=== PATIENT | male | born 1990 | race Caucasian/White ===

== ENCOUNTER → 2016-11-23 | Outpatient (CLI) | payer OTHER ==
[2016-11-23 13:36] LABS: BASO % 0.3 %; BASO ABS # 0.01 K/uL (0-0.2); COMPLETE YES; EOS % 1.1 %; HEMATOCRIT 38.9 % (42-52); IG% 0.3 %; LYMPH % 41.8 %; LYMPH ABS # 1.57 K/uL (1.2-3.4); MEAN CELL VOLUME 82.4 fL (80-100); MEAN CORPUSCULAR HEMOGLOBIN 28.2 pg (25-34); MEAN CORPUSCULAR HGB CONC 34.2 g/dl (32-36); MEAN PLATELET VOLUME 9.4 fL (7.4-10.4); MONO % 10.6 %; NEUT % 45.9 %; PLATELET COUNT 214 K/uL (130-400); RED BLOOD COUNT 4.72 M/uL (4.7-6.1); WHITE BLOOD COUNT 3.76 K/uL (4.8-10.8)
[2016-11-23 14:00] LABS: ALT/SGPT 21 U/L (12-78); BLOOD UREA NITROGEN 8 mg/dl (7-18); BUN/CREATININE RATIO 9.1 (10-20); CALCIUM 8.9 mg/dl (8.5-10.1); CARBON DIOXIDE 28 mmol/L (21-32); CHLORIDE 105 mmol/L (98-107); CREATININE 0.87 mg/dl (0.60-1.40); GLUCOSE 74 mg/dl (70-99); POTASSIUM 4.1 mmol/L (3.5-5.1); SODIUM 140 mmol/L (136-145)
[2016-11-23 14:11] LABS: ALKALINE PHOSPHATASE 42 U/L (45-117); AST/SGOT 10 U/L (15-37); CHOLESTEROL 161 mg/dl (0-200); HDL CHOLESTEROL 54 mg/dl; LDL CHOLESTEROL CALCULATED 81 mg/dl; TRIGLYCERIDES 129 mg/dl (0-150); VERY LOW DENSITY LIPOPROT CALC 26 mg/dl
== END | disposition home or self-care (01) ==
LOC: C.LAB 12:56
PROVIDERS: ATTEND Psychiatry & Neurology Geriatric Psychiatry
DX: Z79.899 Other long term (current) drug therapy (principal)

== ENCOUNTER 2020-12-09 13:38 | Inpatient (IN) ==
[2020-12-09] MEDS ORDERED: ACETAMINOPHEN 325 MG TAB PO STA (14:54)
[2020-12-09] MEDS ORDERED: DICLOFENAC SOD 1% GEL 100 GM TUBE EXT STA (14:54)
[2020-12-09] MEDS: SODIUM CHLORIDE 0.9% 1000ML 1,000 ML IV SCH ×2 (15:03→23:12)
--- NOTE | 2020-12-09 15:13 | Emergency Department Note ---
History of Present Illness General Chief complaint: Back Injury/Pain Stated complaint: chest pain, severe back pain, sob Time Seen by Provider: 12/09/20 14:34 Source: patient and family Mode of arrival: ambulatory Limitations: physical limitation (Intellectual delay) History of Present Illness Provider complaint: back pain Onset (ago): day(s) Location: back Radiation: distal Severity: mild Pain Consistency: + constant Relieved By: + none Exacerbated By: + movement Associated symptoms: + denies other symptoms Treatments prior to arrival: NSAID This is a 30-year-old male who presents with family at bedside due to concern for back pain. Patient initially states back pain began yesterday however later than states it began several days ago. He states it does sometimes radiate including and was leg. He denies abdominal pain, fevers, chills, change in urine or bowel movements. He denies difficulty walking. States occasionally he does feel tingling in his leg. No prior history of back injury or back problems. 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 Family at bedside state patient has a history of intellectual delay and bipolar disorder. He was recently restarted on Thorazine and the mother noticed that his back pain began shortly after this. Family is also concerned that patient is not having the same response to Thorazine as he had as had prev iously. With permission of the patient and family member, I spoke with mom on speaker phone. Mother states that about every 4 years he has an episode of se. She states he has used Thorazine in the past with good success. She states Thorazine was restarted 2 weeks ago at 100 mg twice daily. She states shortly after that he began complaining of back pain. Mother states he has not been having the same appropriate response. She has tried to recontact his prescriber, Dr. Pride, however suspects that her messages are not being passed along by the nursing staff. She states she was told by nursing staff to take him to the [facility] for inpatient however he is not suicidal, homicidal or self-injurious. She did take him anyway for evaluation and was told he does not meet criteria for inpatient. She then tried to recontact Dr. Veliz again and the same nurse told her to bring him to the emergency room for a psych evaluation. Mother is concerned his medications just need to be adjusted but has not been able to contact the prescriber. Mother states he did have his Depakote level checked recently and this was within normal limits. She states in discussion with her other son, there was concern that patient was short of breath and also complained of chest pain earlier today. She felt patient should be brought in for additional cardiac evaluation in case of an adverse reaction to the Thorazine. Pt seen during a time of high acuity and national emergency pandemic while wearing PPE. Home Medications Medication Instructions Recorded Confirmed Type chlorpromazine 100 mg tablet 100 mg PO BID 12/09/20 12/09/20 History divalproex 500 mg tablet,extended 500 mg PO TID 12/09/20 12/09/20 History release 24 hr hydroxyzine HCl 25 mg tablet 25 mg PO HS 12/09/20 12/09/20 History quetiapine 300 mg tablet,extended 300 mg PO QAM 12/09/20 12/09/20 History release 24 hr quetiapine 400 mg tablet,extended 400 mg PO HS 12/09/20 12/09/20 History release 24 hr quetiapine 50 mg tablet,extended 50 mg PO HS 12/09/20 12/09/20 History release 24 hr trazodone 100 mg tablet 200 mg PO HS 12/09/20 12/09/20 History Allergies Allergy/AdvReac Type Severity Reaction Status Date / Time Sulfa (Sulfonamide AdvReac Severe HIVES Verified 12/09/20 15:12 Antibiotics) Past Med/Surg History Medical History Bipolar disorder Social History Smoking Status: Current some day smoker Second Hand Exposure: No; Do You Dip or Chew Tobacco: No; Hx Alcohol Use: Yes Alcohol type: beer Hx Substance Use: Yes Last Used Substance: Unknown Preferred Language: Spanish Communication Ability: Effective Philatelic Consultant Required: No Beliefs That Will Affect Care: None Current Living Situation: Family Feels Safe at Home: Yes Safety Concerns: Feels Safe At This Time Review of Systems A total of 10 systems reviewed and were otherwise negative All systems reviewed & are unremarkable except as noted in HPI & below Physical Exam Vital Signs Vital Signs - 24 hr 12/09/20 13:53 12/09/20 16:15 12/09/20 18:59 Temperature 37 C Temperature Source Temporal Artery Scan Pulse Rate 103 H Respiratory Rate 18 20 20 Respiratory Effort / Characteristics Non-Labored Respiratory Depth Normal Normal Blood Pressure 152/89 H Blood Pressure [Right Arm] 161/90 H 154/70 H Blood Pressure Mean 110 Blood Pressure Mean [Right Arm] 113 98 Blood Pressure Position [Right Arm] Lying Pulse Oximetry 100 99 99 Oxygen Delivery Method Room Air Room Air Room Air Sepsis Recent Fever Within 48 Hours No Sepsis New/Unexplained Change in Mental Status No Sepsis Action Taken by Nursing No Action Required GENERAL: alert, well appearing, well nourished, no distress, non-toxic EYE EXAM: normal conjunctiva, PERRL and EOM's grossly intact OROPHARYNX: no exudate, no erythema, lips, buccal mucosa, and tongue normal and mucous membranes are moist NECK: supple, no nuchal rigidity, no adenopathy, non-tender LUNGS: Clear to auscultation. Normal chest wall mechanics, no w/r/r HEART: no murmurs, S1 normal and S2 normal ABDOMEN: abdomen soft, non-tender, normo-active bowel sounds, no masses, no rebound or guarding. BACK: Back is symmetrical on inspection and there is no deformity, no midline tenderness, no CVA tenderness. SKIN: no rashes and no bruising UPPER EXTREMITIES: upper extremities are grossly normal. FROM, nml pulses b/l. LOWER EXTREMITIES: No pitting edema. FROM, nml pulses b/l. NEURO EXAM: Normal sensorium, cranial nerves II-XII grossly intact, normal speech, no gross weakness of arms, no gross weakness of legs. No pronator drif t. Finger to nose intact. Gross sensation intact. Course Course 1620: Updated on results. Will add US. 172: Discussed with pt and family at bedside. No abd pain on repeat exam. We did discuss ADRs of Thorazine, while jaundice as listed, there is no evidence of transaminitis or other hyperbilirubinemia listed on the potential ADRs. 185: Updated Mom over the phone. 1909: Discussed with Dr. Willard. Administered Medications Chlorpromazine HCl (Chlorpromazine Hcl 100 Mg Tab) 100 mg PO BID MIRTHA Stop: 01/08/21 23:44 Last Admin: 12/10/20 20:05 Dose: 100 mg Documented by: [id number] Admin: 12/10/20 08:23 Dose: 100 mg Documented by: [id number] Admin: 12/10/20 00:11 Dose: 100 mg Documented by: [id number] Divalproex Sodium (Divalproex Extended Release 500 Mg Tab) 500 mg PO TID@0800,1200,2100 MIRTHA Stop: 01/08/21 23:44 Last Admin: 12/10/20 20:08 Dose: 500 mg Documented by: [id number] Admin: 12/10/20 11:56 Dose: 500 mg Documented by: [id number] Admin: 12/10/20 08:24 Dose: 500 mg Documented by: [id number] Admin: 12/10/20 00:09 Dose: 500 mg Documented by: [id number] Hydroxyzine HCl (Hydroxyzine Hcl 25 Mg Tab) 25 mg PO HS MIRTHA Stop: 01/08/21 23:44 Last Admin: 12/10/20 20:05 Dose: 25 mg Documented by: [id number] Admin: 12/10/20 00:10 Dose: 25 mg Documented by: [id number] Sodium Chloride (Nss 1000ml) 1,000 mls @ 125 mls/hr IV .Q8H MIRTHA Stop: 01/08/21 14:59 Last Admin: 12/10/20 15:37 Dose: 125 mls/hr Documented by: [id number] Infusion: 12/10/20 15:37 Dose: 125 mls/hr Documented by: [id number] Infusion: 12/10/20 09:55 Dose: 125 mls/hr Documented by: [id number] Infusion: 12/10/20 08:22 Dose: 0 mls/hr Documented by: [id number] Admin: 12/10/20 06:16 Dose: 125 mls/hr Documented by: [id number] Infusion: 12/10/20 06:16 Dose: 125 mls/hr Documented by: [id number] Admin: 12/09/20 23:12 Dose: 125 mls/hr Documented by: [id number] Infusion: 12/09/20 23:03 Dose: 125 mls/hr Documented by: [id number] Admin: 12/09/20 15:03 Dose: 125 mls/hr Documented by: [id number] Ibuprofen (Ibuprofen 800 Mg Tab) 800 mg PO TID PRN PRN Reason: Pain Stop: 01/09/21 00:12 Last Admin: 12/10/20 08:23 Dose: 800 mg Documented by: [id number] Admin: 12/10/20 04:20 Dose: 800 mg Documented by: [id number] Admin: 12/10/20 00:30 Dose: 800 mg Documented by: [id number] Quetiapine Fumarate (Quetiapine Fumarate 50 Mg Tabcr) 50 mg PO [facility] Stop: 01/08/21 23:44 Last Admin: 12/10/20 20:06 Dose: 50 mg Documented by: [id number] Admin: 12/10/20 00:11 Dose: 50 mg Documented by: [id number] Quetiapine Fumarate (Quetiapine Fumarate 300 Mg Tablet) 300 mg PO [facility] Stop: 01/09/21 08:59 Last Admin: 12/10/20 08:24 Dose: 300 mg Documented by: [id number] Quetiapine Fumarate (Quetiapine Fumarate 200 Mg Tabcr) 400 mg PO [facility] Stop: 01/08/21 23:44 Last Admin: 12/10/20 20:08 Dose: 400 mg Documented by: [id number] Admin: 12/10/20 00:10 Dose: 400 mg Documented by: [id number] Trazodone HCl (Trazodone Hcl 100 Mg Tab) 200 mg PO [facility] Stop: 01/08/21 23:44 Last Admin: 12/10/20 20:06 Dose: 200 mg Documented by: [id number] Admin: 12/10/20 00:11 Dose: 200 mg Documented by: [id number] Discontinued Medications Acetaminophen (Acetaminophen 325 Mg Tab) 650 mg PO NOW STA Stop: 12/09/20 14:55 Last Admin: 12/09/20 15:02 Dose: 650 mg Documented by: [id number] Diclofenac Sodium (Diclofenac Sod 1% Gel 100 Gm Tube) 1 gm EXT NOW STA Stop: 12/09/20 14:55 Last Admin: 12/09/20 15:02 Dose: 1 gm Documented by: [id number] Medical Decision Making Differential Diagnosis Differential diagnoses includes but is not limited to lumbar radiculopathy, muscle strain, facture, cauda equina, mass, and disc herniation. Medical Records Attestation: I reviewed the patient's medical records. Home Medications Current Medication List: was personally reviewed by me Laboratory Data Attestation: I reviewed the patient's lab results. Result diagrams: 12/10/20 07:51 12/10/20 07:51 Lab Results 12/09/20 Range/Units 16:40 D-Dimer 1200 H* (0-500) ug/L FEU Imaging Data Radiologist's Impression: Chest X-Ray 12/09/20 14:54 XR chest 1V portable CLINICAL HISTORY: chest pain COMPARISON STUDY: No previous studies for comparison. FINDINGS: Chronic left chest wall/rib deformity is noted. There is no pneumothorax or pleural effusion. Note is made of moderate enlargement of the cardiac silhouette. No consolidation is identified. IMPRESSION: 1. No acute findings. 2. Moderate enlargement of the cardiac silhouette. ACT 112: Negative or not required by law. Electronically signed by: Alexander Crowley M.D. 12/09/2020 3:47 PM Lumbar Spine X-Ray 12/09/20 14:54 XR lumbar spine 2-3V CLINICAL HISTORY: back pain COMPARISON STUDY: No previous studies for comparison. FINDINGS: Alignment of the lumbar spine is anatomic. Vertebral body heights are maintained. There is no fracture. Disc spaces are preserved. Facet joints are intact. The bowel gas pattern is normal. No osseous lesion is identified. IMPRESSION: Unremarkable lumbar spine radiographs. ACT 112: Negative or not required by law. Electronically signed by: Alexander Crowley M.D. 12/09/2020 3:48 PM Abdomen Ultrasound 12/09/20 16:12 ABDOMINAL ULTRASOUND, RIGHT UPPER QUADRANT HISTORY: abn LFT's. COMPARISON: None. FINDINGS: The liver is echogenic. No hepatic lesions are identified. There is intra and extrahepatic biliary ductal dilatation. The common bile duct measures 1.3 cm in caliber. No common bile duct calculi are identified although these may be occult by sonography. Markedly abnormal appearance of the gallbladder is note d. No gallstones are identified. The wall is significantly thickened and irregular. There is pericholecystic fluid. Sonographic Billy sign could not be assessed for. Pancreas is largely obscured. There is no right hydronephrosis. IMPRESSION: 1. Significant intra and extrahepatic biliary ductal dilatation. No common bile duct calculi identified although these may be occult by sonography. Correlation with liver function tests is recommended. 2. Hepatic steatosis. 3. Abnormal appearance of the gallbladder with moderate irregular gallbladder wall thickening and pericholecystic fluid. No gallstones identified. The sonographic appearance is nonspecific. However, acalculus acute cholecystitis cannot be completely excluded. Correlation with right upper quadrant pain is recommended. ACT 112: Negative or not required by law. Electronically signed by: Alexander Crowley M.D. 12/09/2020 5:15 PM ECG Data Attestation: I personally reviewed and interpreted this ECG as follows: Indication: + back/shoulder pain Rate (beats per minute): 94 Rhythm: + normal sinus ECG Intervals/blocks: + Normal QRS and + Normal QT ECG [place]: + Normal ECG ST segments: + T-wave inversions (III) MDM Narrative This is a 30-year-old male who presents with family at bedside due to concern for back pain. Family also concerned he does not seem to be having an appropriate response to Thorazine during this current manic event as he has had in the past. Patient does live with family, does work part-time despite being actually delayed with bipolar disorder. After discussion with mother about the other concerns for his behavior in this current setting, labs are drawn and sent, EKG and chest x-ray also performed. Patient's back x-rays were reassuring, urine unremarkable. I do not suspect occult concerning spine pathology. Patient found to have abnormal LFTs, however other labs reassuring also. No ectopy or dysrhythmia noted. No abdominal pain on multiple repeat exams, and patient denied any change in bowel movements, no recent nausea or vomiting. I updated patient and and brother at bedside, and then updated mom over the phone. Due to concern for abnormal LFTs, will discuss with the hospitalist for additional evaluation and management. While the Thorazine was the most recent new medication he has taken it in the past without any adverse reaction. Given lack of pain, and reassuring ultrasound was performed in the ED I do not suspect acute cholecystitis. No prior history of hepatitis. Patient likely will need GI consult and MRCP. An order was placed for continuous cardiac monitoring. The monitor shows a rate of _101_ with sinus tachycardia rhythm. Impression & Plan Back pain, Bipolar disorder, Intellectual delay, Elevated LFTs, Hyperbilirubinemia Discharge Plan Visit Data Chief Complaint: Back Injury/Pain Stated Complaint: chest pain, severe back pain, sob ED Provider: Madelin Raygoza Discharge Problem: Back pain, Bipolar disorder, Intellectual delay, Elevated LFTs, Hyperbilirubinemia Patient Disposition: Admitted As Inpatient Condition: Good Discharge Instructions Interventions: ED Discharge Assessment Last Done: 07/24/21 22:58 Discharge Problem: Back pain Qualifiers: Back pain location: low back pain Chronicity: acute Back pain laterality: unspecified Sciatica presence: without sciatica Qualified Code(s): M54.5 - Low back pain Bipolar disorder Qualifiers: Active/Remission status: currently active Current bipolar episode type: manic Current episode severity: moderate Qualified Code(s): F31.12 - Bipolar disorder, current episode manic without psychotic features, moderate
[2020-12-09 15:27] LABS: Eosinophils # (auto) 0.01 K/uL (0-0.5); Eosinophils % (auto) 0.1 %; Hematocrit (blood only) 39.4 % (42-52); Hemoglobin 13.4 g/dL (14.0-18.0); Immature Granulocytes # (auto) 0.01 K/uL (0.00-0.02); Immature Granulocytes % (auto) 0.1 %; Lymphocytes # (auto) 0.74 K/uL (1.2-3.4); Lymphocytes % (auto) 8.3 %; Mean Corpuscular Hemoglobin 27.1 pg (25-34); Mean Corpuscular Volume 79.8 fL (80-100); Mean Platelet Volume 8.8 fL (7.4-10.4); Monocytes # (auto) 0.79 K/uL (0.11-0.59); Monocytes % (auto) 8.8 %; Neutrophils % (auto) 82.7 %; Platelet Count 250 K/uL (130-400); RDW Coefficient of Variation 14.4 % (11.5-14.5); RDW Standard Deviation 41.9 fL (36.4-46.3); Red Blood Count 4.94 M/uL (4.7-6.1); White Blood Count 8.95 K/uL (4.8-10.8)
--- NOTE | 2020-12-09 15:49 | XRay Report ---
XR chest 1V portable CLINICAL HISTORY: chest pain COMPARISON STUDY: No previous studies for comparison. FINDINGS: Chronic left chest wall/rib deformity is noted. There is no pneumothorax or pleural effusio n. Note is made of moderate enlargement of the cardiac silhouette. No consolidation is identified. IMPRESSION: 1. No acute findings. 2. Moderate enlargement of the cardiac silhouette. ACT 112: Negative or not required by law. Electronically signed by: Alexander Crowley M.D. 12/09/2020 3:47 PM
--- NOTE | 2020-12-09 15:49 | XRay Report ---
XR lumbar spine 2-3V CLINICAL HISTORY: back pain COMPARISON STUDY: No previous studies for comparison. FINDINGS: Alignment of the lumbar spine is anatomic. Vertebral body heights are maintained. There is no fracture. Disc spaces are preserved. Facet joints are intact. The bowel gas pattern is normal. No osseous lesion is identified. IMPRESSION: Unremarkable lumbar spine radiographs. ACT 112: Negative or not required by law. Electronically signed by: Alexander Crowley M.D. 12/09/2020 3:48 PM
[2020-12-09 15:53] LABS: Albumin Level 3.8 gm/dl (3.4-5.0); Aspartate Aminotransferase 446 U/L (15-37); BUN Creatinine Ratio 9.9 (10-20); Blood Urea Nitrogen 8 mg/dl (7-18); Calcium 9.6 mg/dl (8.5-10.1); Carbon Dioxide 27 mmol/L (21-32); Chloride 101 mmol/L (98-107); Creatinine Clr Calc Pharmacy 151.9 ml/min; Est GFR (African American) 141.9 ml/min; Est GFR (Non-African American) 122.4 ml/min; Glucose 118 mg/dl (70-99); Lipase 122 U/L (73-393); Magnesium 2.2 mg/dl (1.8-2.4); Potassium 4.1 mmol/L (3.5-5.1); Sodium 134 mmol/L (136-145)
[2020-12-09 16:04] LABS: Alanine Aminotransferase 1161 U/L (12-78); Albumin Globulin Ratio 0.9 (0.9-2); Alkaline Phosphatase 171 U/L (45-117); Bilirubin,Total 4.4 mg/dl (0.2-1); Globulin 4.2 gm/dl (2.5-4.0); NT Pro B Type Natriuretic Pept 20 pg/ml (0-450); Thyroid Stimulating Hormone 0.941 uIu/ml (0.300-4.500); Troponin I < 0.015 ng/ml (0-0.045)
[2020-12-09 16:59] LABS: D Dimer 1200 ug/L FEU (0-500)
--- NOTE | 2020-12-09 17:16 | Ultrasound Report ---
ABDOMINAL ULTRASOUND, RIGHT UPPER QUADRANT HISTORY: abn LFT's. COMPARISON: None. FINDINGS: The liver is echogenic. No hepatic lesions are identified. There is intra and extrahepatic biliary ductal dilatation. The common bile duct measures 1.3 cm in caliber. No common bile duct calcu li are identified although these may be occult by sonography. Markedly abnormal appearance of the gal lbladder is noted. No gallstones are identified. The wall is significantly thickened and irregular. T here is pericholecystic fluid. Sonographic Billy sign could not be assessed for. Pancreas is largely obscured. There is no right hydronephrosis. IMPRESSION: 1. Significant intra and extrahepatic biliary ductal dilatation. No common bile duct calculi identifi ed although these may be occult by sonography. Correlation with liver function tests is recommended. 2. Hepatic steatosis. 3. Abnormal appearance of the gallbladder with moderate irregular gallbladder wall thickening and per icholecystic fluid. No gallstones identified. The sonographic appearance is nonspecific. However, willie lculus acute cholecystitis cannot be completely excluded. Correlation with right upper quadrant pain is recommended. ACT 112: Negative or not required by law. Electronically signed by: Alexander Crowley M.D. 12/09/2020 5:15 PM
[2020-12-09 18:53] LABS: Appearance Urine Clear (Clear); Blood Urine Negative (Negative); Color Urine Dark Yellow; Glucose Urine UA Negative (Negative); Ketones Urine Trace (Negative); Leukocyte Esterase Urine Negative (Negative); Nitrite Urine Negative (Negative); Protein Urine Negative (Negative); Specific Gravity Urine 1.009 (1.000-1.030); Urobilinogen Urine Negative (Negative); pH Urine 6.5 (4.5-7.5)
[2020-12-09 18:57] LABS: Bilirubin Urine 2+ (Negative)
--- NOTE | 2020-12-09 21:06 | History & Physical Report ---
Date of Service December 09, 2020 Assessment & Plan (1) Elevated LFTs: Plan: Dion Pedro is a 30-year-old male with past medical history of intellectual delay, and bipolar disorder; who presents for concern of lower back pain/chest pain over the last week and a half. Elevated LFTs: -Uncertain etiology of LFT elevations -Given the extent of elevations consideration of viral process, hepatitis, toxin mediated liver damage, or previous gallstone blockage causing elevation -Ultrasound RUQ demonstrating intra and extrahepatic biliary duct dilatation, no common bile duct calculi, hepatic steatosis, irregular gallbladder wall thickening with pericholecystic fluid -Hepatitis panel ordered -Continue to trend LFTs -MRCP ordered for further evaluation of gallbladder and biliary tree -Given extent and risk of potentially worsening patient's bipolar by holding medications, will continue home bipolar regimen at this time Bipolar disorder: -Continue home regimen of Seroquel 300 mg qAM, 400 mg qHS; Thorazine 100 mg BID; Depakote 500 mg TID -Would consider psych consultation if needing to make changes to regimen Diet: Regular CODE STATUS: Full code (2) Bipolar disorder: (3) Intellectual delay: History of Present Illness Primary Care Provider: Munir Snow Dion Pedro is a 30-year-old male with past medical history of intellectual delay, and bipolar disorder; who presents for concern of lower back pain/chest pain over the last week and a half. This pain has minimally worsened over the last 10 days to 2 weeks, however today noticed that this left lower sided back pain, and frontal chest pain was associated with some increased fatigue/shortness of breath. Over this time he has not trialed any medications in order to address the pain, but does have the recent change of the readdition of Thorazine to his medication regimen that was 2 weeks ago. According to family this was done at the direction of his psychiatrist Dr. Pride, as a result of a recent episode of se. He has been on this medication multiple times in the past, which has had good success in controlling his se. Family noticed that shortly after starting the Thorazine 100 twice a day he was complaining of this back pain. They have not noticed a significant improvement in his mental state over this time, as compared to previous times when they have had to utilize the Thorazine. He denies any association of the pain with food or drink. Has not had any nausea, vomiting, or abdominal pain over this time. Allergies Allergy/AdvReac Type Severity Reaction Status Date / Time Sulfa (Sulfonamide AdvReac Severe HIVES Verified 12/09/20 15:12 Antibiotics) Home Medications Medication Instructions Recorded Confirmed Type chlorpromazine 100 mg tablet 100 mg PO BID 12/09/20 12/09/20 History divalproex 500 mg tablet,extended 500 mg PO TID 12/09/20 12/09/20 History release 24 hr hydroxyzine HCl 25 mg tablet 25 mg PO HS 12/09/20 12/09/20 History quetiapine 300 mg tablet,extended 300 mg PO QAM 12/09/20 12/09/20 History release 24 hr quetiapine 400 mg tablet,extended 400 mg PO HS 12/09/20 12/09/20 History release 24 hr quetiapine 50 mg tablet,extended 50 mg PO HS 12/09/20 12/09/20 History release 24 hr trazodone 100 mg tablet 200 mg PO HS 12/09/20 12/09/20 History Past Med/Surg History Medical History Bipolar disorder Social History Smoking Status: Current some day smoker Second Hand Exposure: No; Do You Dip or Chew Tobacco: No; Hx Alcohol Use: Yes Alcohol type: beer Hx Substance Use: Yes Last Used Substance: Unknown Preferred Language: Vietnamese Communication Ability: Effective Promotional Marketing Analyst Required: No Beliefs That Will Affect Care: None Current Living Situation: Family Feels Safe at Home: Yes Safety Concerns: Feels Safe At This Time Review of Systems Review of Systems: All systems reviewed & are unremarkable except as noted in HPI & below Physical Exam Constitutional: WD/WN, vitals as above Eyes: PERRL, conjunctivae normal, anicteric sclerae Respiratory: normal respiratory effort, lungs clear to auscultation Auscultation: no crackles, no rales, no rhonchi and no wheezes Cardiovascular: Rate/Rhythm: regular rate and regular rhythm Heart Sounds: no gallop, no murmur and no cardiac rub Vessels: normal peripheral pulses; no JVD Extremities: no edema Gastrointestinal (Abdomen): Inspection/Auscultation: normal bowel sounds; abdomen not distended Percussion/Palpation: abdomen soft; abdomen nontender and no guarding Musculoskeletal: no cyanosis or clubbing, extremities motor strength 5/5 Skin: no rashes, warm and dry Neurologic: PERRL, EOMI, accommodation nl, no face palsy, no dysarthria CN's II-XI intact bilaterally and moves all extremities Psychiatric: Orientation: alert and oriented x 3 Results & Data Results & Data ([facility]) Vital Signs (Past 12 Hours) Vital Signs Temp Pulse Resp BP BP Pulse Ox 12/09/20 18:59 20 154/70 H 99 12/09/20 16:15 20 161/90 H 99 12/09/20 13:53 37 C 103 H 18 152/89 H 100 Laboratory Results 12/09/20 12/09/20 12/09/20 Range/Units Unknown Unknown Unknown WBC (4.8-10.8) K/uL RBC (4.7-6.1) M/uL Hgb (14.0-18.0) g/dL Hct (42-52) % MCV (80-100) fL MCH (25-34) pg MCHC (32-36) g/dL RDW Std Deviation (36.4-46.3) fL RDW Coeff of Hien (11.5-14.5) % Plt Count (130-400) K/uL MPV (7.4-10.4) fL Immature Gran % (Auto) % Neut % (Auto) % Lymph % (Auto) % Sully % (Auto) % Eos % (Auto) % Baso % (Auto) % Neut # (Auto) (1.4-6.5) K/uL Lymph # (Auto) (1.2-3.4) K/uL Sully # (Auto) (0.11-0.59) K/uL Eos # (Auto) (0-0.5) K/uL Baso # (Auto) (0-0.2) K/uL Immature Gran # (Auto) (0.00-0.02) K/uL D-Dimer (0-500) ug/L FEU Sodium 134 L (136-145) mmol/L Potassium 4.1 (3.5-5.1) mmol/L Chloride 101 (98-107) mmol/L Carbon Dioxide 27 (21-32) mmol/L Anion Gap 6.0 (3-11) BUN 8 (7-18) mg/dl Creatinine 0.76 (0.6-1.4) mg/dl Est Cr Clr Drug Dosing 151.9 ml/min Est GFR ( Amer) 141.9 ml/min Est GFR (Non-Af Amer) 122.4 ml/min BUN/Creatinine Ratio 9.9 L (10-20) Glucose 118 H (70-99) mg/dl Calcium 9.6 (8.5-10.1) mg/dl Magnesium 2.2 (1.8-2.4) mg/dl Total Bilirubin 4.4 H (0.2-1) mg/dl AST 446 H (15-37) U/L ALT 1161 H (12-78) U/L Alkaline Phosphatase 171 H (45-117) U/L Troponin I < 0.015 (0-0.045) ng/ml NT-Pro-B Natriuret Pep 20 (0-450) pg/ml Total Protein 8.0 (6.4-8.2) gm/dl Albumin 3.8 (3.4-5.0) gm/dl Globulin 4.2 H (2.5-4.0) gm/dl Albumin/Globulin Ratio 0.9 (0.9-2) Lipase 122 (73-393) U/L TSH 0.941 (0.300-4.500) uIu/ml Urine Color Dark Yellow Urine Appearance Clear (Clear) Urine pH 6.5 (4.5-7.5) Ur Specific [place] 1.009 (1.000-1.030) Urine Protein Negative (Negative) Urine Glucose (UA) Negative (Negative) Urine Ketones Trace H (Negative) Urine Blood Negative (Negative) Urine Nitrite Negative (Negative) Urine Bilirubin 2+ H (Negative) Urine Urobilinogen Negative (Negative) Ur Leukocyte Esterase Negative (Negative) Valproic Acid 83 (50-100) mcg/ml 12/09/20 12/09/20 12/09/20 Range/Units Unknown Unknown 16:40 WBC 8.95 (4.8-10.8) K/uL RBC 4.94 (4.7-6.1) M/uL Hgb 13.4 L (14.0-18.0) g/dL Hct 39.4 L (42-52) % MCV 79.8 L (80-100) fL MCH 27.1 (25-34) pg MCHC 34.0 (32-36) g/dL RDW Std Deviation 41.9 (36.4-46.3) fL RDW Coeff of Hien 14.4 (11.5-14.5) % Plt Count 250 (130-400) K/uL MPV 8.8 (7.4-10.4) fL Immature Gran % (Auto) 0.1 % Neut % (Auto) 82.7 % Lymph % (Auto) 8.3 % Sully % (Auto) 8.8 % Eos % (Auto) 0.1 % Baso % (Auto) 0.0 % Neut # (Auto) 7.40 H (1.4-6.5) K/uL Lymph # (Auto) 0.74 L (1.2-3.4) K/uL Sully # (Auto) 0.79 H (0.11-0.59) K/uL Eos # (Auto) 0.01 (0-0.5) K/uL Baso # (Auto) 0.00 (0-0.2) K/uL Immature Gran # (Auto) 0.01 (0.00-0.02) K/uL D-Dimer Cancelled 1200 H* (0-500) ug/L FEU Sodium (136-145) mmol/L Potassium (3.5-5.1) mmol/L Chloride (98-107) mmol/L Carbon Dioxide (21-32) mmol/L Anion Gap (3-11) BUN (7-18) mg/dl Creatinine (0.6-1.4) mg/dl Est Cr Clr Drug Dosing ml/min Est GFR ( Amer) ml/min Est GFR (Non-Af Amer) ml/min BUN/Creatinine Ratio (10-20) Glucose (70-99) mg/dl Calcium (8.5-10.1) mg/dl Magnesium (1.8-2.4) mg/dl Total Bilirubin (0.2-1) mg/dl AST (15-37) U/L ALT (12-78) U/L Alkaline Phosphatase (45-117) U/L Troponin I (0-0.045) ng/ml NT-Pro-B Natriuret Pep (0-450) pg/ml Total Protein (6.4-8.2) gm/dl Albumin (3.4-5.0) gm/dl Globulin (2.5-4.0) gm/dl Albumin/Globulin Ratio (0.9-2) Lipase (73-393) U/L TSH (0.300-4.500) uIu/ml Urine Color Urine Appearance (Clear) Urine pH (4.5-7.5) Ur Specific [place] (1.000-1.030) Urine Protein (Negative) Urine Glucose (UA) (Negative) Urine Ketones (Negative) Urine Blood (Negative) Urine Nitrite (Negative) Urine Bilirubin (Negative) Urine Urobilinogen (Negative) Ur Leukocyte Esterase (Negative) Valproic Acid (50-100) mcg/ml Diagnostic Findings Impressions Chest X-Ray 12/09/20 14:54 XR chest 1V portable CLINICAL HISTORY: chest pain COMPARISON STUDY: No previous studies for comparison. FINDINGS: Chronic left chest wall/rib deformity is noted. There is no pneumothorax or pleural effusion. Note is made of moderate enlargement of the cardiac silhouette. No consolidation is identified. IMPRESSION: 1. No acute findings. 2. Moderate enlargement of the cardiac silhouette. ACT 112: Negative or not required by law. Electronically signed by: Alexander Crowley M.D. 12/09/2020 3:47 PM Lumbar Spine X-Ray 12/09/20 14:54 XR lumbar spine 2-3V CLINICAL HISTORY: back pain COMPARISON STUDY: No previous studies for comparison. FINDINGS: Alignment of the lumbar spine is anatomic. Vertebral body heights are maintained. There is no fracture. Disc spaces are preserved. Facet joints are intact. The bowel gas pattern is normal. No osseous lesion is identified. IMPRESSION: Unremarkable lumbar spine radiographs. ACT 112: Negative or not required by law. Electronically signed by: Alexander Crowley M.D. 12/09/2020 3:48 PM Abdomen Ultrasound 12/09/20 16:12 ABDOMINAL ULTRASOUND, RIGHT UPPER QUADRANT HISTORY: abn LFT's. COMPARISON: None. FINDINGS: The liver is echogenic. No hepatic lesions are identified. There is intra and extrahepatic biliary ductal dilatation. The common bile duct measures 1.3 cm in caliber. No common bile duct calculi are identified although these may be occult by sonography. Markedly abnormal appearance of the gallbladder is noted. No gallstones are identified. The wall is significantly thickened and irregular. There is pericholecystic fluid. Sonographic Billy sign could not be assessed for. Pancreas is largely obscured. There is no right hydronephrosis. IMPRESSION: 1. Significant intra and extrahepatic biliary ductal dilatation. No common bile duct calculi identified although these may be occult by sonography. Correlation with liver function tests is recommended. 2. Hepatic steatosis. 3. Abnormal appearance of the gallbladder with moderate irregular gallbladder wall thickening and pericholecystic fluid. No gallstones identified. The sonographic appearance is nonspecific. However, acalculus acute cholecystitis cannot be completely excluded. Correlation with right upper quadrant pain is recommended. ACT 112: Negative or not required by law. Electronically signed by: Alexander Crowley M.D. 12/09/2020 5:15 PM Medications Administered Home Medication List Medication Instructions Recorded chlorpromazine 100 mg tablet 100 mg PO BID 12/09/20 divalproex 500 mg tablet,extended 500 mg PO TID 12/09/20 release 24 hr hydroxyzine HCl 25 mg tablet 25 mg PO HS 12/09/20 quetiapine 300 mg tablet,extended 300 mg PO QAM 12/09/20 release 24 hr quetiapine 400 mg tablet,extended 400 mg PO HS 12/09/20 release 24 hr quetiapine 50 mg tablet,extended 50 mg PO HS 12/09/20 release 24 hr trazodone 100 mg tablet 200 mg PO HS 12/09/20 Supervising Physician Co-Signing Physician Notes Patient seen and examined, chart reviewed, case discussed with Dr. Riley and I agree with his assessment and plan as above. In brief, Mr. Pedro is a 30yoo male with intellectual delay, bipolar disorder presenting with back pain, found with with abnormal liver studies. Patient was recently started on Thorazine for Bipolar se. No additional medication changes. He denies EtOH or Tylenol use. NO nausea/vomiting/diarrhea. On exam he is AA&O, pleasant, non-toxic in appearance HEENT - mild scleral icterus and sublingual jaundice, MMM, neck supple Heart - +S1/S2, regular, no m/r/g Lungs - CTA Abd - +BS, soft, mild RUQ tenderness without rebound/guarding/peritonitis Ext - no edema Neuro- grossly non-focal Labs and images reviewed CMK=239, MCF=7135, QI=284, Tbili=4.4 Abdominal US with significant intra and extrahepatic biliary ductal dilatation. No CBD calculi noted Assessment/Plan - 30yo male presenting with back pain found with abnormal liver studies. ?medication effects, viral process -Check acute hepatitis panel, MRCP, repeat LFTs -Continue home medications Resident Activity Tracking Resident Involvement: Resident Care Provided Care Provided: Adult Hospital Medicine
[2020-12-09] MEDS ORDERED: ALUMINUM/MAGNESIUM SUSP 30 ML UDC PO PRN (23:10)
[2020-12-09] MEDS ORDERED: POLYETHYLENE (MIRALAX) 17 GM PACK PO PRN (23:10)
[2020-12-09] MEDS ORDERED: MAGNESIUM HYDROXIDE SUSP 30 ML UDC PO PRN (23:10)
[2020-12-09] MEDS ORDERED: ONDANSETRON INJ 2 MG/ML 2 ML VIAL IV PRN (23:10)
[2020-12-10] MEDS: DIVALPROEX EXTENDED RELEASE 500 MG TAB PO SCH ×4 (00:09→20:08)
[2020-12-10] MEDS: hydrOXYzine HCl 25 MG TAB PO SCH ×2 (00:10→20:05)
[2020-12-10] MEDS: QUEtiapine FUMARATE 200 MG TABCR PO SCH ×2 (00:10→20:08)
[2020-12-10] MEDS: QUEtiapine FUMARATE 50 MG TABCR PO SCH ×2 (00:11→20:06)
[2020-12-10] MEDS: traZODone HCL 100 MG TAB PO SCH ×2 (00:11→20:06)
[2020-12-10] MEDS: IBUPROFEN 800 MG TAB PO PRN ×3 (00:30→08:23)
--- NOTE | 2020-12-10 04:23 | Billing Data ---
Date of Service December 10, 2020 Coding Level of Care Code 26019 Initial Inpt Care Lvl 2
[2020-12-10] MEDS: SODIUM CHLORIDE 0.9% 1000ML 1,000 ML IV SCH ×3 (06:16→22:57)
[2020-12-10 08:06] LABS: Basophils # (auto) 0.01 K/uL (0-0.2); Basophils % (auto) 0.1 %; Eosinophils # (auto) 0.01 K/uL (0-0.5); Eosinophils % (auto) 0.1 %; Hematocrit (blood only) 40.9 % (42-52); Lymphocytes # (auto) 0.75 K/uL (1.2-3.4); Lymphocytes % (auto) 8.2 %; Mean Corpuscular Hemoglobin 27.3 pg (25-34); Mean Corpuscular Hgb Conc 34.2 g/dL (32-36); Mean Corpuscular Volume 79.9 fL (80-100); Mean Platelet Volume 8.7 fL (7.4-10.4); Monocytes # (auto) 0.84 K/uL (0.11-0.59); Monocytes % (auto) 9.2 %; Neutrophils # (auto) 7.57 K/uL (1.4-6.5); Neutrophils % (auto) 82.4 %; Platelet Count 214 K/uL (130-400); RDW Coefficient of Variation 14.8 % (11.5-14.5); RDW Standard Deviation 42.9 fL (36.4-46.3); Red Blood Count 5.12 M/uL (4.7-6.1); White Blood Count 9.18 K/uL (4.8-10.8)
[2020-12-10 08:23] LABS: Alanine Aminotransferase 852 U/L (12-78); Albumin Level 3.4 gm/dl (3.4-5.0); Aspartate Aminotransferase 275 U/L (15-37); BUN Creatinine Ratio 10.9 (10-20); Blood Urea Nitrogen 7 mg/dl (7-18); Calcium 8.7 mg/dl (8.5-10.1); Carbon Dioxide 25 mmol/L (21-32); Chloride 104 mmol/L (98-107); Creatinine Clr Calc Pharmacy 192.2 ml/min; Est GFR (African American) > 150.0 ml/min; Est GFR (Non-African American) 134.9 ml/min; Glucose 122 mg/dl (70-99); Potassium 3.9 mmol/L (3.5-5.1); Sodium 134 mmol/L (136-145)
[2020-12-10] MEDS: QUEtiapine FUMARATE 300 MG TABLET PO SCH (08:24)
[2020-12-10 08:28] LABS: Albumin Globulin Ratio 0.8 (0.9-2); Alkaline Phosphatase 183 U/L (45-117); Globulin 4.1 gm/dl (2.5-4.0); Phosphorus 2.5 mg/dl (2.5-4.9); Total Protein 7.5 gm/dl (6.4-8.2)
--- NOTE | 2020-12-10 09:48 | Hospitalist Progress Note ---
Date of Service December 10, 2020 Assessment & Plan (1) Elevated LFTs: Plan: Dion Pedro is a 30-year-old male with past medical history of intellectual delay, and bipolar disorder; who presents for concern of lower back pain/chest pain over the last week and a half. Elevated LFTs: -Uncertain etiology of LFT elevations -Given the extent of elevations consideration of viral process, hepatitis, toxin mediated liver damage, or previous gallstone blockage causing elevation -Ultrasound RUQ demonstrating intra and extrahepatic biliary duct dilatation, no common bile duct calculi, hepatic steatosis, irregular gallbladder wall thickening with pericholecystic fluid -Hepatitis panel ordered- pending -Continue to trend LFTs- trending downwards (AST: 446 --> 275, ALT: 1161 --> 852, ALP: 171 --> 183) -MRCP ordered for further evaluation of gallbladder and biliary tree- pending -Given extent and risk of potentially worsening patient's bipolar by holding medications, will continue home bipolar regimen at this time Bipolar disorder: -Continue home regimen of Seroquel 300 mg qAM, 400 mg qHS; Thorazine 100 mg BID; Depakote 500 mg TID -Consider psych consultation, however, not necessary at this time; patient and c ase management are trying to get a hold of his prescribing physician of his psychiatric medications for an appointment this week following stabilization and discharge Diet: Low fat CODE STATUS: Full code Irineo Real DO PGY1, FCM (2) Bipolar disorder: (3) Intellectual delay: Admission and Anticipated Discharge Date Admission Date: December 09, 2020 Supervising Physician Co-Signing Physician Notes I personally examined the patient and verified all krishnamurthy points of history and exam, discussed case, and agree with decision making with Dr Real feeling better - no pain this AM none since no pain after eating, generally feels much better. dad notes that he'd had back pain some for the last month and was taking occassional ibuprofen/APAP - but on clarification probably 2-4 tabs total per day and didn't sound to be every day. vitals noted nad heent nc at mmm breathing unlabored no accessory muscles good effort skin no rashes no pallor or icterus. abd soft mild distention nontender no RUQ tenderness no guarding no rebound no rigidity pain/elevated LFTs ddx fairly broad and LFTs sort of both hint at obstructive (w bilirubin) and hepatocellular (w disproportionate elevation of AST/ALT compared to alk phos) -- but since no clear ingestions to create toxic insult (APAP, ibuprofen doesn't seem to be in a range to cause this, and just restarted thorazine but would be very odd for that to create this picture - and AST/ALT improving and still on thorazine) or shock liver (not even clinically relevant other than when transaminases approach 1000 this comes to the ddx...but again no clinical appearance c/w this), seems most likely that it was biliary (particularly with his pattern of pain) -- MRCP pending; and for eval of transaminitis picture -- hepatitis panel pending. clinically improved, labs showing an overall reassuring trend -serial hx, serial exams, serial LFT, await MRCP and hep panel. Subjective Upon entering room, patient's IV was out, He states it had fallen out when he got out of his bed. I was called up because he was in "extreme pain" but when talking to patient he was in no distress and only complained of minimal left lower back pain which has been present since admission. No other acute complaints today. Review of Systems Review of Systems: All systems reviewed & are unremarkable except as noted in HPI & below Physical Exam Physical Exam: Constitutional- alert and oriented x3, pleasant, no distress HEENT- mild scleral icterus and sublingual jaundice, moist mucus membranes, neck supple Heart- +S1/S2, regular, no m/r/g Lungs- clear to auscultation Abd- +BS present, soft, nontender RUQ without rebound/guarding/peritonitis MSK- no edema Neuro- grossly non-focal Results & Data Results & Data ([facility]) Vital Signs (Past 12 Hours) Vital Signs Temp Pulse Pulse Resp BP Pulse Ox 12/10/20 07:26 37.2 C 97 H 16 164/99 H 96 12/10/20 00:31 95 H 146/93 H 12/09/20 23:18 37.6 C H 101 H 16 155/107 H 99 12/09/20 22:32 79 22 148/70 H 100 Resident Activity Tracking Resident Involvement: Resident Care Provided Care Provided: Adult Hospital Medicine
--- NOTE | 2020-12-10 11:29 | Electrocardiogram Report ---
Test Reason : Blood Pressure : / mmHG Vent. Rate : 097 BPM Atrial Rate : 097 BPM P-R Int : 122 ms QRS Dur : 084 ms QT Int : 328 ms P-R-T Axes : 030 037 -36 degrees QTc Int : 416 ms Normal sinus rhythm Nonspecific T wave abnormality Abnormal ECG No previous ECGs available Confirmed by Guy Sesay ([id number]) on 12/10/2020 11:29:19 AM Referred By: REFERRED SELF Confirmed By:Guy Sesay
--- NOTE | 2020-12-10 11:47 | Electrocardiogram Report ---
Test Reason : Blood Pressure : / mmHG Vent. Rate : 094 BPM Atrial Rate : 094 BPM P-R Int : 138 ms QRS Dur : 082 ms QT Int : 356 ms P-R-T Axes : 021 038 -04 degrees QTc Int : 445 ms Normal sinus rhythm Normal ECG When compared with ECG of 09-DEC-2020 13:57, (unconfirmed) Nonspecific T wave abnormality no longer evident in Confirmed by Guy Sesay ([id number]) on 12/10/2020 11:46:49 AM Referred By: REFERRED SELF Confirmed By:Guy Sesay
--- NOTE | 2020-12-10 20:50 | Billing Data ---
Date of Service December 10, 2020 Coding Level of Care Code 56932 Subseq Hosp Care Lvl 3
[2020-12-11] MEDS: SODIUM CHLORIDE 0.9% 1000ML 1,000 ML IV SCH (06:06)
[2020-12-11 07:30] LABS: Alanine Aminotransferase 605 U/L (12-78); Aspartate Aminotransferase 202 U/L (15-37); BUN Creatinine Ratio 10.3 (10-20); Blood Urea Nitrogen 6 mg/dl (7-18); Calcium 8.2 mg/dl (8.5-10.1); Carbon Dioxide 24 mmol/L (21-32); Chloride 103 mmol/L (98-107); Creatinine Clr Calc Pharmacy 202.4 ml/min; Est GFR (African American) > 150.0 ml/min; Est GFR (Non-African American) 137.8 ml/min; Glucose 100 mg/dl (70-99); Potassium 4.1 mmol/L (3.5-5.1); Sodium 134 mmol/L (136-145)
[2020-12-11 07:33] LABS: Albumin Globulin Ratio 0.8 (0.9-2); Alkaline Phosphatase 189 U/L (45-117); Bilirubin,Total 4.4 mg/dl (0.2-1); Globulin 3.8 gm/dl (2.5-4.0); Total Protein 6.8 gm/dl (6.4-8.2)
[2020-12-11] MEDS: QUEtiapine FUMARATE 300 MG TABLET PO SCH (08:43)
[2020-12-11] MEDS: DIVALPROEX EXTENDED RELEASE 500 MG TAB PO SCH ×2 (08:43→10:45)
[2020-12-11 08:53] LABS: Lyme Ab IgG w/WB Rflx Negative (Negative); Lyme Ab IgM w/WB Rflx Negative (Negative)
[2020-12-11 09:46] LABS: Hepatitis B Surf Ag Rflx Conf Neg (Neg)
[2020-12-11 10:14] LABS: Hepatitis C IgG 13Yrs+Old_Rflx Neg (Neg)
--- NOTE | 2020-12-11 10:51 | Hospitalist Progress Note ---
Date of Service December 11, 2020 Assessment & Plan (1) Elevated LFTs: Plan: Pt is a 30 yo M with PMH of bipolar disorder and intellectual delay who presented with over 1.5 weeks of lower back pain/chest pain 1) Elevated LFTs -Presented with lower back and chest pain with physical exam findings of mild RUQ tenderness and scleral icterus, elevated AST/ALT and RUQ ultrasound demonstrating biliary duct dilatation with irregular gallbladder wall thickening, etiology of elevated LFTs include hepatocellular vs obstructive causes vs hepatotoxicity from psychotropic medications. Lower suspicion for acute cholecystitis, higher suspicion for viral hepatitis given downtrending of LFTs through hospital course indicating self-resolving illness. -AST 446 to 202, ALT 1165 to 605, expected to continue decreasing -Hepatitis B and C studies negative -Lyme and Anaplasma studies sent today, negative -MRCP performed last night- no evidence of obstruction makes biliary pathology unlikely -Serum depakote level within range -Pt tolerating solids well, IV fluids discontinued today 2) Bipolar disorder -Stable -Continue home Seroquel 300 mg qAM, 400 mg qHs, Thorazine 100 mg BID, Depakote 500 mg TID -Patient and case management are trying to get a hold of his prescribing physi maurilio of his psychiatric medications for an appointment this week following stabilization and discharge Diet: Low fat CODE STATUS: Full code Remy Roper MD PGY1, FCM (2) Bipolar disorder: (3) Intellectual delay: Admission and Anticipated Discharge Date Admission Date: December 09, 2020 Subjective No acute events overnight. Pt currently denying back or chest pain, reporting mid-abdominal pain but states it is non-distressing. Slept well, voiding without issue, tolerating solids well. Denies SOB, nausea, vomiting, diarrhea. Review of Systems Review of Systems: All systems reviewed & are unremarkable except as noted in HPI & below Gastrointestinal: + abdominal pain Physical Exam Physical Exam: Constitutional- alert, pleasant, no distress HEENT- mild scleral icterus, moist mucus membranes, neck supple Heart- regular rate and rhythm, normal S1, S2 Lungs- clear to auscultation, good air flow entry Abd- Mild tenderness to palpation in RUQ, no guarding or rigidity, no distension Neuro- grossly intact cranial nerves Results & Data Results & Data ([facility]) Vital Signs (Past 12 Hours) Vital Signs Temp Pulse Resp BP Pulse Ox 12/11/20 07:00 36.7 C 112 H 20 121/71 95 Chemistry Results CMP Results: Na 134 mmol/L (136-145) L 12/11/20 K 4.1 mmol/L (3.5-5.1) 12/11/20 Cl 103 mmol/L (98-107) 12/11/20 CO2 24 mmol/L (21-32) 12/11/20 Anion Gap 7.0 (3-11) 12/11/20 BUN 6 mg/dl (7-18) L 12/11/20 Creatinine 0.57 mg/dl (0.6-1.4) L 12/11/20 Estimated GFR ( Amer) > 150.0 ml/min 12/11/20 Estimated GFR (Non-Af Amer) 137.8 ml/min 12/11/20 BUN/Creatinine Ratio 10.3 (10-20) 12/11/20 Glu 100 mg/dl (70-99) H 12/11/20 Ca 8.2 mg/dl (8.5-10.1) L 12/11/20 Phosphorus Level 2.5 mg/dl (2.5-4.9) 12/10/20 Total Bilirubin 4.4 mg/dl (0.2-1) H 12/11/20 AST 202 U/L (15-37) H 12/11/20 ALT 605 U/L (12-78) H 12/11/20 Alkaline Phosphatase 189 U/L (45-117) H 12/11/20 TP 6.8 gm/dl (6.4-8.2) 12/11/20 Albumin 3.0 gm/dl (3.4-5.0) L 12/11/20 Globulin 3.8 gm/dl (2.5-4.0) 12/11/20 Albumin/Globulin Ratio 0.8 (0.9-2) L 12/11/20 Resident Activity Tracking Resident Involvement: Resident Care Provided Care Provided: Adult Hospital Medicine (1) Bipolar disorder Active/Remission status: currently active Current bipolar episode type: manic Current episode severity: moderate Qualified Code(s): F31.12 - Bipolar disorder, current episode manic without psychotic features, moderate
--- NOTE | 2020-12-11 11:19 | Magnetic Resonance Report ---
MRCP CLINICAL HISTORY: RUQ pain with CBD dilatation TECHNIQUE: Utilizing a 1.5 Courtney magnet and dedicated coil, multiplanar, multiecho imaging of the [facility] er abdomen was performed utilizing heavily T2 weighted pulsing sequences without IV contrast. COMPARISON STUDY: No previous studies for comparison. FINDINGS: Liver is normal in size and signal characteristics. No focal liver lesions or intrahepatic biliary di latations are seen. Gallbladder is fluid-filled with mild thickening of its wall. No definite intraluminal filling defect is seen within gallbladder to suggest presence of the gallstones. MRCP: Common bile duct is dilated measuring up to 1.1 cm in diameter. Intrahepatic biliary ducts are nondilated. No pancreatic duct dilatation is seen. Pancreas shows normal morphology however there is prominent mesenteric edema which surrounds pancreas and extends to the lower abdomen which might represent pancreatitis. Spleen is prominent and measures 13.6 cm in length. Bilateral adrenal glands are unremarkable. Evaluation of the kidneys shows no evidence of hydronephrosis. Visualized loops of bowel are nondilated. Limited evaluation of lung bases shows four-chamber cardiomegaly. IMPRESSION: 1. Mild dilatation of the common bile duct without evidence of cholelithiasis or choledocholithiasis . Small calculi could be nonvisualized by MR technique. 2. Mesenteric edema surrounding pancreas which might represent acute pancreatitis. Please correlate with clinical presentation and laboratory data. 3. Gallbladder wall thickening which was also seen on prior ultrasound of the abdomen performed on 2020 is nonspecific. Short-term follow-up with ultrasound of the gallbladder is suggested. 4. Mild splenomegaly. ACT 112: Positive. There are findings on this exam that require communication between the performing entity and the patient following Patient Test Result Information Act ([place] Act 112) guidelines. The above report was generated using voice recognition software. It may contain grammatical, syntax o r spelling errors. Electronically signed by: Sinai Scales DO 12/11/2020 11:18 AM
--- NOTE | 2020-12-11 14:00 | Discharge Summary ---
Date of Service December 11, 2020 Admission HPI Per Admitting Provider Dion Pedro is a 30-year-old male with past medical history of intellectual delay, and bipolar disorder; who presents for concern of lower back pain/chest pain over the last week and a half. This pain has minimally worsened over the last 10 days to 2 weeks, however today noticed that this left lower sided back pain, and frontal chest pain was associated with some increased fatigue/shortness of breath. Over this time he has not trialed any medications in order to address the pain, but does have the recent change of the readdition of Thorazine to his medication regimen that was 2 weeks ago. According to lizz tirado this was done at the direction of his psychiatrist Dr. Pride, as a result of a recent episode of se. He has been on this medication multiple times in the past, which has had good success in controlling his se. Family noticed that shortly after starting the Thorazine 100 twice a day he was complaining of this back pain. They have not noticed a significant improvement in his mental s gaitan over this time, as compared to previous times when they have had to utilize the Thorazine. He denies any association of the pain with food or drink. Has not had any nausea, vomiting, or abdominal pain over this time. Admission Exam Per Admitting Provider Constitutional: WD/WN, vitals as above Eyes: PERRL, conjunctivae normal, anicteric sclerae Respiratory: normal respiratory effort, lungs clear to auscultation Auscultation: no crackles, no rales, no rhonchi and no wheezes Cardiovascular: Rate/Rhythm: regular rate and regular rhythm Heart Sounds: no gallop, no murmur and no cardiac rub Vessels: normal peripheral pulses; no JVD Extremities: no edema Gastrointestinal (Abdomen): Inspection/Auscultation: normal bowel sounds; abdomen not distended Percussion/Palpation: abdomen soft; abdomen nontender and no guarding Musculoskeletal: no cyanosis or clubbing, extremities motor strength 5/5 Skin: no rashes, warm and dry Neurologic: PERRL, EOMI, accommodation nl, no face palsy, no dysarthria CN's II-XI intact bilaterally and moves all extremities Psychiatric: Orientation: alert and oriented x 3 Principal Diagnosis Back pain Discharge Exam Constitutional- alert, pleasant, no distress HEENT- mild scleral icterus, moist mucus membranes, neck supple Heart- regular rate and rhythm, normal S1, S2 Lungs- clear to auscultation, good air flow entry Abd- Mild tenderness to palpation in RUQ, no guarding or rigidity, no distension Neuro- grossly intact cranial nerves Discharge Data Allergies Allergy/AdvReac Type Severity Reaction Status Date / Time Sulfa (Sulfonamide AdvReac Severe HIVES Verified 12/09/20 15:12 Antibiotics) Consultations 12/09/20 19:18 ED Decision to Admit Stat Ordered Studies 12/09/20 16:12 US abdomen limited Stat 12/10/20 23:10 MR MRCP Routine Hospital Course (1) Elevated LFTs: Pt is a 30 yo M with PMH of bipolar disorder and intellectual delay who presented with over 1.5 weeks of lower back pain/chest pain 1) Elevated LFTs -Pt presented with 1.5 weeks of lower back/chest pain and was hospitalized from 12/09-12/11. He received thorough evaluation in the ED and was noted to have RUQ tenderness and scleral icterus on physical exam, as well as elevated AST/ALT to 446/1165, hyperbilirubinemia and RUQ ultrasound demonstrating biliary duct dilation with irregular gallbladder wall thickening. Multiple etiologies were considered, including viral hepatitis vs gallstones vs hepatotoxicity from psychotropic medications. Pt was treated supportively during hospital stay with IV fluids, PRNs for nausea, bloating and pain. His LFTs were monitored over the course of his stay and consistent downtrending of his AST and ALT was observed. Additionally, multiple other studies were sent as part of the evaluation, including Hepatitis B and C studies, Lyme, Anaplasma and serum valproic acid, all of which were unequivocal. Pt also received an MRCP which did not demonstrate any evidence of biliary obstruction or gallstones. Pt's pain improved, he was able to tolerate PO well and did not experience any acute events during his time on the floor. Pt's condition was suspected to be likely s ome viral hepatitis with expected self-resolution. Pt to go to [facility] appointment on 12/14 for hospital discharge follow-up, with recommended repeat CMP. 2) Bipolar disorder -Stable with no psychiatric symptoms or decompensation noted during stay. Patient was continued on his home medications- Seroquel, Thorazine, Depakote. Serum Depakote level was within normal range during admission to rule out CYP- 450 dysregulation secondary to hepatic injury. Remy Roper MD PGY1, [facility] (2) Bipolar disorder: (3) Intellectual delay: Total Time Total Time Spent Total Time Spent (In Minutes): 40 Discharge Plan Discharge Items Patient Disposition: Home - Self-Care Reason For Visit: ELEVATED LFTS Discharge Diagnosis: Hepatitis Condition on Discharge: Good Activity: Resume your previous activity Non-emergency contact: Primary Care Provider Call non-emergency contact if: you have any medication questions, your symptoms worsen and your pain is worsening Follow-up/Referrals: Munir Snow [Primary Care Provider] - Diet: Regular Addtl Attending Provider Instructions: You were admitted to the hospital for lower back and chest pain, then found to have elevated liver enzymes. You were treated with IV fluids, medications for pain control and nausea. You received laboratory tests and imaging studies to determine the source of your pain. It was concluded to be most likely due to hepatitis, or inflammation of the liver. Hepatitis -We performed multiple studies to determine the cause of your symptoms. This included regular bloodwork to check your liver function as well as imaging studies of the gallbladder and liver. We also sent several studies to rule out other causes of your pain. We observed improvement in your regular bloodwork and pain as your hospital stay continued. Bipolar disorder -We continued your home medications for bipolar disorder as prescribed by your psychiatrist. We did not make any adjustments to your medications during your hospital stay. A discharge summary will be sent to your primary care physician to ensure continuity of care. Please bring this discharge summary with you to your next office appointment so that your provider can review it at that time. Follow-up appointments: We have scheduled a follow-up appointment at the [facility] clinic with Dr. Echevarria on 12/14. You should also follow-up with your psychiatrist to discuss your current medication regimen and see if any adjustments need to be made after this hospital stay. Keep all your follow-up appointments as already scheduled. If you cannot make an appointment, notify your provider. Medications: Your medication list has been reviewed and reconciled upon discharge to ensure a ccuracy and continuity of care. An updated list of all your medications is included with your hospital discharge paperwork. Please review this list closely, and make note of any changes. Take your medications as instructed; do not skip a dose of your medicines. Make sure all of your doctors know every medicine you are taking (including fxxz-[id number] medicines, vitamins, and supplements). Call your primary care provider before taking any new medicines (including ckts-liz-lkbglxs medicines, vitamins, and supplements), because some of these may interact with your current medications, or may make your symptoms worse. Tell your primary care provider if you cannot afford your medications. CONTACT YOUR PRIMARY CARE PROVIDER if you experience any of the following: Persistent back, chest or abdominal pain Persistent nausea or vomiting Persistent fever Yellow discoloration of the eyes or skin Difficulty following your treatment plan, or difficulty taking medications CALL 911 OR GO TO THE EMERGENCY DEPARTMENT if you experience any of the following: Sudden, severe abdominal pain or nausea/vomiting Severe chest pain, or chest pain that radiates (moves) to your jaw or arm Sudden, severe shortness of breath or difficulty breathing Thank you for allowing us to participate in your care. Pending Studies at Discharge: No Stand-Alone Forms: My [facility] [employer], Smoking Cessation Medications and DC Order Prescriptions: Continued chlorpromazine 100 mg tablet 100 mg PO BID RF: 0 trazodone 100 mg tablet 200 mg PO HS RF: 0 divalproex 500 mg tablet extended release 24 hr 500 mg PO TID RF: 0 hydroxyzine HCl 25 mg tablet 25 mg PO HS RF: 0 quetiapine 300 mg tablet extended release 24 hr 300 mg PO QAM RF: 0 quetiapine 400 mg tablet extended release 24 hr 400 mg PO HS RF: 0 quetiapine 50 mg tablet extended release 24 hr 50 mg PO HS RF: 0 Discharge Orders: Discharge Order (Routine); Ordered 12/11/20 Ordered By: Remy Hdez/Other Patient Handouts: Preventing Deep Vein Thrombosis Admission Data Admit Date/Time: 12/09/20 20:25 Attending Provider: Sallie Villatoro Admit Provider: Rita Willard Primary Care Provider: Munir Snow Other Providers: Rita Willard Other Interventions: Discharge Summary Assessment (RN) Last Done: 12/11/20 16:40 Supervising Physician Co-Signing Physician Notes Resident Physician Supervision Note: I independently interviewed and examined the patient and verified the krishnamurthy h istory and physical, reviewed labs and image studies and agree with resident Dr. Roper findings and care plan. Resident Activity Tracking Resident Involvement: Resident Care Provided Care Provided: Adult [facility]
[2020-12-11] MEDS ORDERED: ACETAMINOPHEN 325 MG TAB PO PRN (15:13)
[2020-12-12 05:32] LABS: Hepatitis A Antibody IgM NON-REACTIVE (NON-REACTIVE); Hepatitis B Core Antibody IgM NON-REACTIVE (NON-REACTIVE)
== END 2020-12-11 17:40 | disposition home or self-care (01) | DRG 443 ==
LOC: ED 13:38 → 3W 20:25 → SUATTDRO 20:25 → 3W 22:58